=== PATIENT | male | born 2000 | race Caucasian/White ===

== ENCOUNTER 2019-12-20 14:47 | Emergency (ER) | payer OTHER ==
[~2019-12-20] VITALS: Ht 185.4 cm; Wt 61.1 kg
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
[2019-12-20] MEDS ORDERED: NEOSPORIN OINT. PKT 1 PACKET ONE ×3 (15:12→16:51)
--- NOTE | 2019-12-20 15:13 | NUR ---
DR BARGER AT BEDSIDE TO EVAL PT, REPORT TO LOBO HERNANDEZ.
[2019-12-20] MEDS ORDERED: SODIUM CHLORIDE 0.9% 1,000ML IVBOLUS ONE (15:30)
[2019-12-20] MEDS ORDERED: SODIUM CHLORIDE FLUSH 10ML SYR IVF ONE (15:30)
[2019-12-20] MEDS ORDERED: HYDROmorphone 2 MG/ML, 1ML IVPush ONE (15:30)
[2019-12-20] MEDS ORDERED: ONDANSETRON 2MG/ML, 2ML IVPush ONE (15:30)
--- NOTE | 2019-12-20 16:15 | NUR ---
PT UNSURE IF WANTS TO TRANSFER TO [facility]. ERMS SHAM NOTIFIED AND AT BEDSIDE TO EVALUATE.
[2019-12-20 16:16] VITALS: BP 137/74
--- NOTE | 2019-12-20 16:30 | NUR ---
PT agrees to transport
--- NOTE | 2019-12-20 16:53 | NUR ---
[facility] at bedside. PT again refusing transport.
== END 2019-12-20 17:30 | disposition left against medical advice (07) ==
LOC: ED 15:29
DX: T20.22XA Burn of second degree of lip(s), initial encounter (principal); T23.271A Burn of second degree of right wrist, initial encounter; T20.16XA Burn of first degree of forehead and cheek, initial encounter; T20.14XA Burn of first degree of nose (septum), initial encounter; T20.13XA Burn of first degree of chin, initial encounter; T28.0XXA Burn of mouth and pharynx, initial encounter; T22.152A Burn of first degree of left shoulder, initial encounter; T22.132A Burn of first degree of left upper arm, initial encounter; T22.112A Burn of first degree of left forearm, initial encounter; T31.0 Burns involving less than 10% of body surface; J45.909 Unspecified asthma, uncomplicated; X08.8XXA Exposure to other specified smoke, fire and flames, initial encounter; Y93.89 Activity, other specified; Y92.89 Other specified places as the place of occurrence of the external cause; Y99.8 Other external cause status
CPT/HCPCS: 16000; 99282